=== PATIENT | female | born 1960 | race Caucasian/White ===

== ENCOUNTER 2022-12-04 13:18 | Outpatient (REF) | payer MEDICAID, SELFPAY ==
[2022-12-04 14:46] LABS: Calculated LDL 132 mg/dL (<100); Cholesterol 206 mg/dL (<200); HDL Cholesterol 51 mg/dL (40-60); Triglyceride 116 mg/dL (<150)
== END 2022-12-04 13:19 | disposition home or self-care (01) ==
LOC: NCHCN 13:18
PROVIDERS: PCP Nurse Practitioner Family; Visit Provider Family Medicine
DX: R10.9 Unspecified abdominal pain (principal); E66.3 Overweight
CPT/HCPCS: 80061

== ENCOUNTER 2023-01-19 14:01 | Outpatient (REF) | payer MEDICAID, SELFPAY ==
[2023-01-19 15:40] LABS: COMMENT (LAB VIEW ONLY) 60.93 mg/dL; Microalb ug/mg Crea 35.5 ug/mg Cr
== END 2023-01-19 14:02 | disposition home or self-care (01) ==
LOC: NCHCN 14:01
PROVIDERS: PCP Nurse Practitioner Family; Visit Provider Nurse Practitioner Family
DX: N39.0 Urinary tract infection, site not specified (principal)
CPT/HCPCS: 87077; 82043; 82570; 87086; 87186

== ENCOUNTER 2023-09-01 10:27 | Outpatient (REF) | payer MEDICAID, SELFPAY ==
[2023-09-01 15:00] LABS: Calculated LDL 120 mg/dL (<100); Cholesterol 194 mg/dL (<200); HDL Cholesterol 57 mg/dL (40-60); TSH (W/Ref FT4) 2.03 uIU/mL (0.36-3.74); Triglyceride 85 mg/dL (<150)
[2023-09-01 15:13] LABS: Vitamin D 25 Total 61.3 ng/mL (30-100)
== END 2023-09-01 10:28 | disposition home or self-care (01) ==
LOC: NCHCN 10:27
PROVIDERS: PCP Nurse Practitioner Family; Visit Provider Physician Assistant
DX: R30.0 Dysuria (principal); R82.89 Other abnormal findings on cytological and histological examination of urine
CPT/HCPCS: 80061; 82306; 84443; 87086

== ENCOUNTER 2024-06-28 16:55 | Outpatient (REF) | payer MEDICAID, SELFPAY | END 2024-06-28 16:56 | disposition home or self-care (01) | LOC: NCHCN 16:55 | PROVIDERS: PCP Nurse Practitioner Family; Visit Provider Nurse Practitioner Family | DX: R39.9 Unspecified symptoms and signs involving the genitourinary system (principal); R82.89 Other abnormal findings on cytological and histological examination of urine | CPT/HCPCS: 87086 ==